=== PATIENT | female | born 1945 | race Caucasian/White ===

== ENCOUNTER → 2017-02-02 | Outpatient (CLI) | payer MEDICARE ==
[~2017-02-02] MED LIST: ALPH300C PO; AMLO10TA2 PO; ASPI81TA50 PO; ATOR80TA75 PO; CHOL20002 PO; DIPH25CA61 PO; FLUO40CA2 PO; GABA300C10 PO; LOSA1TAB12 PO; METF10002 PO; OMEP20CA9 PO; ROPI1TAB PO; prednisone; tagamet
== END | disposition home or self-care (01) ==
LOC: CFH 07:45
PROVIDERS: ATTEND Internal Medicine Cardiovascular Disease
DX: I08.3 Combined rheumatic disorders of mitral, aortic and tricuspid valves (principal); I50.30 Unspecified diastolic (congestive) heart failure
CPT/HCPCS: 93306

== ENCOUNTER → 2017-02-11 | Outpatient (CLI) | payer MEDICARE | END | disposition home or self-care (01) | LOC: CVU 12:49 | PROVIDERS: ATTEND Internal Medicine Cardiovascular Disease | DX: I73.9 Peripheral vascular disease, unspecified (principal); R60.0 Localized edema | CPT/HCPCS: 93922; 93926; 93971; 93978 ==

== ENCOUNTER → 2018-01-09 | Outpatient (CLI) | payer MEDICARE ==
[~2018-01-09] MED LIST changes: +ATOR-2 PO; -ATOR80TA75 PO
== END ==
LOC: CVU 13:41
PROVIDERS: ATTEND Internal Medicine Cardiovascular Disease
DX: I87.2 Venous insufficiency (chronic) (peripheral) (principal)
CPT/HCPCS: 93970

== ENCOUNTER 2018-10-17 16:14 | Inpatient (IN) | payer MEDICARE ==
[~2018-10-17] VITALS: Ht 157.5 cm; Wt 88.3 kg
--- NOTE | 2018-10-17 16:20 | NUR ---
ERP NOTIFIED OF PT SEVERE MUKHERJEE STARTED AFTER PT HAS SYNCOPAL EPISODE. ERP DR. MARTINO AT BEDSIDE.
--- NOTE | 2018-10-17 16:23 | NUR ---
BIB CODE 250 FOR C/O SYNCOPE EPISODE FOR 30-45 SEC WHILE DOING A TILT TABLE TEST. PT HAD C/O SEVERE MUKHERJEE AFTER SYNCOPAL EPISODE. MONITORS APPLIED. WARM BLANKET PROVIDED. CALL LIGHT IN REACH.
[2018-10-17] MEDS ORDERED: SODIUM CHLORIDE FLUSH 10ML SYR IVF ONE (16:30)
[2018-10-17 16:54] LABS: BASOPHILS # (AUTO) 0.04 x10^3/uL (0-0.1); BASOPHILS % (AUTO) 1 % (0-1); EOSINOPHILS % (AUTO) 1 % (1-7); LYMPHOCYTES # (AUTO) 2.61 x10^3/uL (1-3.4); LYMPHOCYTES % (AUTO) 35 % (22-44); MD NO; MEAN CORPUSCULAR HEMOGLOBIN 32.2 pg (27.0-34.8); MEAN CORPUSCULAR HGB CONC 34.1 g/dL (32.4-35.8); MEAN CORPUSCULAR VOLUME 94.3 fL (80-100); MEAN PLATELET VOLUME 7.3 fL (7.4-10.4); MONOCYTES # (AUTO) 0.48 x10^3/uL (0.2-0.8); MONOCYTES % (AUTO) 6 % (2-9); NEUTROPHILS # (AUTO) 4.26 x10^3/uL (1.8-6.8); NEUTROPHILS % (AUTO) 57 % (42-75); PLATELET COUNT 301 x10^3/uL (130-400); RED BLOOD COUNT 4.04 x10^6/uL (3.82-5.3); RED CELL DISTRIBUTION WIDTH 13.8 % (9.6-15.2)
[2018-10-17 17:03] LABS: ALANINE AMINOTRANSFERASE 23 U/L (12-78); ALBUMIN 3.5 g/dL (3.4-5.0); ANION GAP 4 mmol/L (5-15); CALCIUM 8.6 mg/dL (8.5-10.1); CHLORIDE 105 mmol/L (98-107); CREATININE 0.85 mg/dL (0.55-1.02)
[2018-10-17 17:07] LABS: ALKALINE PHOSPHATASE 105 U/L (45-117); BILIRUBIN,TOTAL 0.7 mg/dL (0.2-1.0); TOTAL PROTEIN 6.8 g/dL (6.4-8.2); TROPONIN I < 0.015 ng/mL (0.000-0.045)
--- NOTE | 2018-10-17 17:20 | NUR ---
PT TO CT VIA [facility].
--- NOTE | 2018-10-17 17:43 | NUR ---
PT BACK FROM CT. AWAITING RESULTS AT THIS TIME.
[2018-10-17] MEDS ORDERED: MORPHINE SULFATE 4 MG/ML, 1ML IVPush PRN (18:00)
[2018-10-17] MEDS ORDERED: SODIUM CHLORIDE FLUSH 10ML SYR IVF PRN (18:00)
[2018-10-17] MEDS ORDERED: ONDANSETRON 2MG/ML, 2ML IVPush ONE (18:00)
--- NOTE | 2018-10-17 18:23 | NUR ---
PT STATES DIZZYNESS AND NAUSEA WHEN SHE LIFTS HER HEAD. SHE IS CURRENTLY LYING FLAT THIS TIME.
--- NOTE | 2018-10-17 18:38 | NUR ---
REPORT GIVEN TO BENSON DOTSON.
--- NOTE | 2018-10-17 18:58 | NUR ---
REPORT RECEIVED FROM SHYAM KNOWLES.
[2018-10-17 19:43] VITALS: BP 144/75
[2018-10-17] MEDS ORDERED: ONDANSETRON 4 MG TABLET PO PRN (22:00)
[2018-10-17] MEDS ORDERED: ROPINIROLE 1MG TABLET PO SCH (22:00)
[2018-10-17] MEDS ORDERED: TEMAZEPAM 15 MG CAPSULE PO PRN (22:00)
[2018-10-17] MEDS ORDERED: LABETALOL 5MG/ML, 20ML IV PRN (22:00)
[2018-10-17] MEDS ORDERED: BISACODYL 10 MG SUPP PR PRN (22:00)
[2018-10-17] MEDS ORDERED: GABAPENTIN 300 MG CAPSULE PO SCH (22:00)
[2018-10-17] MEDS ORDERED: LIDODERM 5% PATCH TD PRN (22:00)
[2018-10-17] MEDS: RIVAROXABAN 10 MG TABLET PO SCH (23:08)
[2018-10-17] MEDS: ATORVASTATIN 80 MG TABLET PO SCH (23:08)
[2018-10-17] MEDS: SODIUM CHLORIDE 0.9% 1,000 ML IV SCH (23:09)
[2018-10-17] MEDS: CARVEDILOL 6.25 MG TABLET PO SCH (23:09)
[2018-10-17] MEDS ORDERED: ROPINIROLE 1MG TABLET ONE (23:23)
[2018-10-17] MEDS: ROPINIROLE 1MG TABLET PO SCH (23:25)
[2018-10-17 23:37] LABS: TROPONIN I < 0.015 ng/mL (0.000-0.045)
[2018-10-18 02:28] VITALS: BP 101/64
[2018-10-18 05:22] LABS: ALBUMIN 3.1 g/dL (3.4-5.0); ANION GAP 5 mmol/L (5-15); CALCIUM 8.3 mg/dL (8.5-10.1); CHLORIDE 107 mmol/L (98-107)
[2018-10-18 05:28] LABS: ALANINE AMINOTRANSFERASE 19 U/L (12-78); ALKALINE PHOSPHATASE 96 U/L (45-117); BILIRUBIN,TOTAL 0.6 mg/dL (0.2-1.0); CHOL/HDL RATIO 3.7; CHOLESTEROL, TOTAL 146 mg/dL (140-239); CREATININE 0.87 mg/dL (0.55-1.02); HDL CHOL % 27 % (28-40); HDL CHOLESTEROL (DIRECT) 40 mg/dL (40-60); LDL CHOLESTEROL,CALCULATED 75 mg/dL (54-169); LDL/HDL RATIO 1.9 (0.5-3.0); TOTAL PROTEIN 6.2 g/dL (6.4-8.2); TRIGLYCERIDES 155 mg/dL (50-200); TROPONIN I < 0.015 ng/mL (0.000-0.045); VLDL CHOLESTEROL 31 mg/dL (0-25)
[2018-10-18 05:29] LABS: BASOPHILS # (AUTO) 0.01 x10^3/uL (0-0.1); BASOPHILS % (AUTO) 0 % (0-1); EOSINOPHILS # (AUTO) 0.08 x10^3/uL (0-0.4); EOSINOPHILS % (AUTO) 2 % (1-7); LYMPHOCYTES # (AUTO) 1.95 x10^3/uL (1-3.4); LYMPHOCYTES % (AUTO) 35 % (22-44); MD NO; MEAN CORPUSCULAR HEMOGLOBIN 31.5 pg (27.0-34.8); MEAN CORPUSCULAR HGB CONC 33.2 g/dL (32.4-35.8); MEAN CORPUSCULAR VOLUME 94.8 fL (80-100); MEAN PLATELET VOLUME 7.5 fL (7.4-10.4); MONOCYTES # (AUTO) 0.44 x10^3/uL (0.2-0.8); MONOCYTES % (AUTO) 8 % (2-9); NEUTROPHILS # (AUTO) 3.15 x10^3/uL (1.8-6.8); NEUTROPHILS % (AUTO) 56 % (42-75); PLATELET COUNT 273 x10^3/uL (130-400); RED BLOOD COUNT 3.82 x10^6/uL (3.82-5.3); RED CELL DISTRIBUTION WIDTH 13.9 % (9.6-15.2)
[2018-10-18 07:05] VITALS: BP 119/67
[2018-10-18] MEDS: SODIUM CHLORIDE 0.9% 1,000 ML IV SCH ×2 (07:42→21:24)
[2018-10-18] MEDS: ROPINIROLE 1MG TABLET PO SCH ×3 (08:38→21:11)
[2018-10-18] MEDS: LOSARTAN 50MG TABLET PO SCH (08:39)
[2018-10-18] MEDS: OMEPRAZOLE 20 MG CAPSULE.DR PO SCH (08:39)
[2018-10-18] MEDS: ASPIRIN 81 MG TABLET CHEW PO SCH (08:39)
[2018-10-18] MEDS: HYDROCHLOROTHIAZIDE 25 MG TABLET PO SCH (08:39)
[2018-10-18] MEDS: FLUOXETINE HCL 20 MG CAPSULE PO SCH (08:39)
[2018-10-18] MEDS: CHOLECALCIFEROL 1,000 UNIT TABLET PO SCH (08:40)
[2018-10-18] MEDS: ASPIRIN 81 MG TABLET CHEW PO/NG SCH (09:00)
[2018-10-18] MEDS ORDERED: ATORVASTATIN 80 MG TABLET PO SCH (09:00)
[2018-10-18] MEDS ORDERED: AMLODIPINE 10 MG TAB PO SCH (09:00)
[2018-10-18] MEDS: TEMPLATE NON-FORMULARY MED. (Alpha Lipoic Acid** 600 MG) HOMEMEDPO SCH (09:00)
[2018-10-18] MEDS ORDERED: ROPINIROLE 1MG TABLET PO SCH (09:00)
[2018-10-18] MEDS: IBUPROFEN 200 MG TABLET PO PRN ×2 (13:18→16:43)
[2018-10-18 17:25] VITALS: BP 138/56
[2018-10-18 18:51] VITALS: BP 113/65
[2018-10-18] MEDS: RIVAROXABAN 10 MG TABLET PO SCH (21:10)
[2018-10-18] MEDS: CARVEDILOL 6.25 MG TABLET PO SCH (21:10)
[2018-10-18] MEDS: ATORVASTATIN 80 MG TABLET PO SCH (21:11)
[2018-10-19 00:19] VITALS: BP_SYST 159; BP_SYST 163; BP_SYST 173; BP_DIAS 76; BP_DIAS 81; BP_DIAS 82
[2018-10-19] MEDS: IBUPROFEN 200 MG TABLET PO PRN (02:55)
[2018-10-19 07:09] VITALS: BP 145/79
[2018-10-19 08:20] VITALS: BP_SYST 128; BP_SYST 130; BP_DIAS 71; BP_DIAS 78
[2018-10-19 08:30] VITALS: BP 118/71
[2018-10-19] MEDS: HYDROCHLOROTHIAZIDE 25 MG TABLET PO SCH (08:41)
[2018-10-19] MEDS: SODIUM CHLORIDE 0.9% 1,000 ML IV SCH (08:41)
[2018-10-19] MEDS: FLUOXETINE HCL 20 MG CAPSULE PO SCH (08:41)
[2018-10-19] MEDS: OMEPRAZOLE 20 MG CAPSULE.DR PO SCH (08:41)
[2018-10-19] MEDS: TEMPLATE NON-FORMULARY MED. (Alpha Lipoic Acid** 600 MG) HOMEMEDPO SCH (08:42)
[2018-10-19] MEDS: ASPIRIN 81 MG TABLET CHEW PO/NG SCH (08:42)
[2018-10-19] MEDS: LOSARTAN 50MG TABLET PO SCH (08:42)
[2018-10-19] MEDS: CHOLECALCIFEROL 1,000 UNIT TABLET PO SCH (08:42)
[2018-10-19] MEDS: ASPIRIN 81 MG TABLET CHEW PO SCH (08:42)
[2018-10-19] MEDS: ROPINIROLE 1MG TABLET PO SCH ×3 (08:43→20:20)
[2018-10-19] MEDS ORDERED: DEXTROSE 4 GM TAB.CHEW PO PRN (09:30)
[2018-10-19] MEDS ORDERED: DEXTROSE 50%, 50ML SYRINGE IVPush PRN (09:30)
[2018-10-19] MEDS ORDERED: GLUCAGON 1 MG IM PRN (09:30)
[2018-10-19] MEDS: INSULIN LISPRO 100 UNITS/ML, PEN SQ-INSULIN SCH ×3 (12:13→20:19)
[2018-10-19 13:04] VITALS: BP 113/70
[2018-10-19] MEDS: ACETAMINOPHEN 500 MG TABLET PO PRN ×2 (14:21→20:20)
[2018-10-19] MEDS: METHOCARBAMOL 500 MG TABLET PO PRN ×2 (14:21→23:06)
[2018-10-19 19:59] VITALS: BP 147/72
[2018-10-19] MEDS: ATORVASTATIN 80 MG TABLET PO SCH (20:20)
[2018-10-19] MEDS: RIVAROXABAN 10 MG TABLET PO SCH (20:20)
[2018-10-19] MEDS: CARVEDILOL 6.25 MG TABLET PO SCH (20:20)
[2018-10-19] MEDS: SODIUM CHLORIDE FLUSH 10ML SYR IVF SCH (21:06)
[2018-10-20] MEDS: ACETAMINOPHEN 500 MG TABLET PO PRN ×2 (01:59→10:28)
[2018-10-20 02:41] VITALS: BP 130/74
[2018-10-20] MEDS: INSULIN LISPRO 100 UNITS/ML, PEN SQ-INSULIN SCH ×4 (07:00→21:28)
[2018-10-20 08:00] VITALS: BP 151/79
[2018-10-20] MEDS: TEMPLATE NON-FORMULARY MED. (Alpha Lipoic Acid** 600 MG) HOMEMEDPO SCH (09:00)
[2018-10-20] MEDS: SODIUM CHLORIDE FLUSH 10ML SYR IVF SCH ×2 (09:00→21:00)
[2018-10-20] MEDS: FLUOXETINE HCL 20 MG CAPSULE PO SCH (10:20)
[2018-10-20] MEDS: HYDROCHLOROTHIAZIDE 25 MG TABLET PO SCH (10:21)
[2018-10-20] MEDS: METHOCARBAMOL 500 MG TABLET PO PRN (10:21)
[2018-10-20] MEDS: OMEPRAZOLE 20 MG CAPSULE.DR PO SCH (10:21)
[2018-10-20] MEDS: ASPIRIN 81 MG TABLET CHEW PO SCH (10:21)
[2018-10-20] MEDS: CHOLECALCIFEROL 1,000 UNIT TABLET PO SCH (10:21)
[2018-10-20] MEDS: LOSARTAN 50MG TABLET PO SCH (10:22)
[2018-10-20] MEDS: IBUPROFEN 200 MG TABLET PO PRN (12:39)
[2018-10-20 14:53] VITALS: BP 143/62
[2018-10-20] MEDS: GABAPENTIN 100 MG CAPSULE PO SCH ×2 (16:00→21:00)
[2018-10-20] MEDS: ACETAMINOPHEN 500 MG TABLET PO SCH ×2 (16:28→21:27)
[2018-10-20] MEDS: ROPINIROLE 1MG TABLET PO SCH ×2 (16:28→21:27)
[2018-10-20] MEDS: METHOCARBAMOL 500 MG TABLET PO SCH ×2 (16:29→21:26)
[2018-10-20] MEDS: metFORMIN 500 MG TABLET PO SCH (17:50)
[2018-10-20 19:52] VITALS: BP 145/80
[2018-10-20] MEDS: RIVAROXABAN 10 MG TABLET PO SCH (21:27)
[2018-10-20] MEDS: CARVEDILOL 6.25 MG TABLET PO SCH (21:27)
[2018-10-20] MEDS: ATORVASTATIN 80 MG TABLET PO SCH (21:27)
[2018-10-21 01:44] VITALS: BP 132/77
[2018-10-21] MEDS: ACETAMINOPHEN 500 MG TABLET PO SCH ×4 (05:58→21:09)
[2018-10-21] MEDS: METHOCARBAMOL 500 MG TABLET PO SCH ×4 (05:58→21:09)
[2018-10-21] MEDS: INSULIN LISPRO 100 UNITS/ML, PEN SQ-INSULIN SCH ×4 (07:00→21:11)
[2018-10-21 08:00] VITALS: BP 146/72
[2018-10-21] MEDS: FLUOXETINE HCL 20 MG CAPSULE PO SCH (08:36)
[2018-10-21] MEDS: CHOLECALCIFEROL 1,000 UNIT TABLET PO SCH (08:36)
[2018-10-21] MEDS: metFORMIN 500 MG TABLET PO SCH ×2 (08:37→17:06)
[2018-10-21] MEDS: LOSARTAN 50MG TABLET PO SCH (08:38)
[2018-10-21] MEDS: OMEPRAZOLE 20 MG CAPSULE.DR PO SCH (08:38)
[2018-10-21] MEDS: ASPIRIN 81 MG TABLET CHEW PO SCH (08:39)
[2018-10-21] MEDS: HYDROCHLOROTHIAZIDE 25 MG TABLET PO SCH (08:40)
[2018-10-21] MEDS: GABAPENTIN 100 MG CAPSULE PO SCH ×3 (08:44→21:00)
[2018-10-21] MEDS: SODIUM CHLORIDE FLUSH 10ML SYR IVF SCH ×2 (08:44→21:10)
[2018-10-21] MEDS: TEMPLATE NON-FORMULARY MED. (Alpha Lipoic Acid** 600 MG) HOMEMEDPO SCH (08:44)
[2018-10-21 09:59] LABS: BASOPHILS # (AUTO) 0.02 x10^3/uL (0-0.1); BASOPHILS % (AUTO) 0 % (0-1); EOSINOPHILS # (AUTO) 0.08 x10^3/uL (0-0.4); EOSINOPHILS % (AUTO) 1 % (1-7); LYMPHOCYTES # (AUTO) 1.33 x10^3/uL (1-3.4); LYMPHOCYTES % (AUTO) 20 % (22-44); MD NO; MEAN CORPUSCULAR HEMOGLOBIN 31.2 pg (27.0-34.8); MEAN CORPUSCULAR HGB CONC 33.2 g/dL (32.4-35.8); MEAN CORPUSCULAR VOLUME 94.2 fL (80-100); MEAN PLATELET VOLUME 7.1 fL (7.4-10.4); MONOCYTES # (AUTO) 0.32 x10^3/uL (0.2-0.8); MONOCYTES % (AUTO) 5 % (2-9); NEUTROPHILS # (AUTO) 4.83 x10^3/uL (1.8-6.8); NEUTROPHILS % (AUTO) 73 % (42-75); PLATELET COUNT 283 x10^3/uL (130-400); RED BLOOD COUNT 3.82 x10^6/uL (3.82-5.3); RED CELL DISTRIBUTION WIDTH 13.8 % (9.6-15.2)
[2018-10-21 10:10] LABS: ALANINE AMINOTRANSFERASE 30 U/L (12-78); ANION GAP 4 mmol/L (5-15); CALCIUM 8.3 mg/dL (8.5-10.1); CHLORIDE 103 mmol/L (98-107); CREATININE 0.99 mg/dL (0.55-1.02)
[2018-10-21 10:12] LABS: ALKALINE PHOSPHATASE 97 U/L (45-117); BILIRUBIN,TOTAL 0.4 mg/dL (0.2-1.0); TOTAL PROTEIN 6.2 g/dL (6.4-8.2)
[2018-10-21] MEDS ORDERED: MAGNESIUM SULFATE 3 GM in SODIUM CHLORIDE 0.9% 100 ML IV ONE (11:00)
[2018-10-21 11:30] VITALS: BP_SYST 127; BP_SYST 131; BP_SYST 133; BP_DIAS 64; BP_DIAS 67; BP_DIAS 73
[2018-10-21 13:17] VITALS: BP 116/70
[2018-10-21] MEDS ORDERED: ROPINIROLE 1MG TABLET PO SCH (16:00)
[2018-10-21 17:14] VITALS: BP 158/79
[2018-10-21 19:21] VITALS: BP 145/78
[2018-10-21] MEDS: ROPINIROLE 1MG TABLET PO SCH (21:09)
[2018-10-21] MEDS: ATORVASTATIN 80 MG TABLET PO SCH (21:10)
[2018-10-21] MEDS: CARVEDILOL 6.25 MG TABLET PO SCH (21:10)
[2018-10-21] MEDS: RIVAROXABAN 10 MG TABLET PO SCH (21:10)
[2018-10-22 00:08] VITALS: BP 129/68
[2018-10-22 04:15] LABS: BASOPHILS % (AUTO) 0 % (0-1); EOSINOPHILS % (AUTO) 0 % (1-7); LYMPHOCYTES # (AUTO) 1.19 x10^3/uL (1-3.4); LYMPHOCYTES % (AUTO) 13 % (22-44); MD NO; MEAN CORPUSCULAR HEMOGLOBIN 32.2 pg (27.0-34.8); MEAN CORPUSCULAR VOLUME 94.6 fL (80-100); MEAN PLATELET VOLUME 7.5 fL (7.4-10.4); MONOCYTES # (AUTO) 0.13 x10^3/uL (0.2-0.8); MONOCYTES % (AUTO) 2 % (2-9); NEUTROPHILS # (AUTO) 7.73 x10^3/uL (1.8-6.8); NEUTROPHILS % (AUTO) 85 % (42-75); PLATELET COUNT 309 x10^3/uL (130-400); RED BLOOD COUNT 3.98 x10^6/uL (3.82-5.3); RED CELL DISTRIBUTION WIDTH 13.3 % (9.6-15.2)
[2018-10-22 04:20] LABS: ALBUMIN 3.4 g/dL (3.4-5.0); ANION GAP 6 mmol/L (5-15); CALCIUM 8.5 mg/dL (8.5-10.1); CHLORIDE 101 mmol/L (98-107)
[2018-10-22 04:25] LABS: ALANINE AMINOTRANSFERASE 31 U/L (12-78); ALKALINE PHOSPHATASE 93 U/L (45-117); BILIRUBIN,TOTAL 0.5 mg/dL (0.2-1.0); CREATININE 0.95 mg/dL (0.55-1.02); TOTAL PROTEIN 6.9 g/dL (6.4-8.2)
[2018-10-22] MEDS: ACETAMINOPHEN 500 MG TABLET PO SCH ×2 (05:18→11:00)
[2018-10-22] MEDS: METHOCARBAMOL 500 MG TABLET PO SCH ×2 (05:18→11:00)
[2018-10-22] MEDS: INSULIN LISPRO 100 UNITS/ML, PEN SQ-INSULIN SCH ×2 (07:51→12:21)
[2018-10-22] MEDS: TEMPLATE NON-FORMULARY MED. (Alpha Lipoic Acid** 600 MG) HOMEMEDPO SCH (09:00)
[2018-10-22] MEDS: FLUOXETINE HCL 20 MG CAPSULE PO SCH (09:19)
[2018-10-22] MEDS: CHOLECALCIFEROL 1,000 UNIT TABLET PO SCH (09:19)
[2018-10-22] MEDS: GABAPENTIN 100 MG CAPSULE PO SCH (09:20)
[2018-10-22] MEDS: HYDROCHLOROTHIAZIDE 25 MG TABLET PO SCH (09:20)
[2018-10-22] MEDS: LOSARTAN 50MG TABLET PO SCH (09:20)
[2018-10-22] MEDS: ASPIRIN 81 MG TABLET CHEW PO SCH (09:20)
[2018-10-22] MEDS: OMEPRAZOLE 20 MG CAPSULE.DR PO SCH (09:21)
[2018-10-22] MEDS: SODIUM CHLORIDE FLUSH 10ML SYR IVF SCH (09:21)
[2018-10-22] MEDS: metFORMIN 500 MG TABLET PO SCH (09:21)
[2018-10-22 09:55] VITALS: BP 103/68
[2018-10-22] MEDS ORDERED: CARV6.2512 PO (11:47)
== END 2018-10-22 13:47 | disposition home health service (06) | DRG 73 ==
LOC: ED 17:59 → EDIP 18:00 → ED 18:08 → 4WST 19:01
PROVIDERS: ADMIT Internal Medicine; ATTEND Internal Medicine
DX: G90.8 Other disorders of autonomic nervous system (principal); J96.21 Acute and chronic respiratory failure with hypoxia; E66.2 Morbid (severe) obesity with alveolar hypoventilation; R47.01 Aphasia; E11.43 Type 2 diabetes mellitus with diabetic autonomic (poly)neuropathy; E11.51 Type 2 diabetes mellitus with diabetic peripheral angiopathy without gangrene; E11.69 Type 2 diabetes mellitus with other specified complication; E78.5 Hyperlipidemia, unspecified; I10 Essential (primary) hypertension; M54.81 Occipital neuralgia; Z80.3 Family history of malignant neoplasm of breast; Z80.7 Family history of other malignant neoplasms of lymphoid, hematopoietic and related tissues; Z82.49 Family history of ischemic heart disease and other diseases of the circulatory system; Z83.3 Family history of diabetes mellitus; Z86.718 Personal history of other venous thrombosis and embolism; Z87.891 Personal history of nicotine dependence; Z99.81 Dependence on supplemental oxygen; Z88.5 Allergy status to narcotic agent; Z88.8 Allergy status to other drugs, medicaments and biological substances; Z68.35 Body mass index [BMI] 35.0-35.9, adult
CPT/HCPCS: 36415; 70450; 70551; 71045; 80053; 80061; 82962; 83036; 83735; 84100; 84484; 85025; 93005; 93306; 99285; G0378; J3475; Q0162; J1815; J7030; J7512

== ENCOUNTER → 2018-10-17 | Outpatient (CLI) | payer MEDICARE ==
[~2018-10-17] MED LIST changes: -AMLO10TA2 PO; +AMLO10TA8 PO; -CHOL20002 PO; +CHOL200052 PO
== END | disposition home or self-care (01) ==
LOC: CVU 12:17
PROVIDERS: ATTEND Internal Medicine Cardiovascular Disease
DX: I70.291 Other atherosclerosis of native arteries of extremities, right leg (principal); I65.23 Occlusion and stenosis of bilateral carotid arteries; I87.2 Venous insufficiency (chronic) (peripheral); R42 Dizziness and giddiness; R60.0 Localized edema; E78.5 Hyperlipidemia, unspecified; I10 Essential (primary) hypertension; E11.9 Type 2 diabetes mellitus without complications; Z86.73 Personal history of transient ischemic attack (TIA), and cerebral infarction without residual deficits; Z87.891 Personal history of nicotine dependence
CPT/HCPCS: 93880; 93922; 93926; 93970

== ENCOUNTER 2021-05-08 09:38 | Inpatient (IN) | payer MEDICARE ==
[~2021-05-08] VITALS: Ht 157.5 cm; Wt 86.6 kg
[~2021-05-08 09:38] MED LIST changes: +ALBU2.5V INH; +ALPR0.5T7 PO; +AMLO-211 PO; -AMLO10TA8 PO; +ATOR40TA78 PO; +CARV6.2512 PO; +FLUO20TA25 PO; +synjardy PO; +xarelto
[2021-05-08] MEDS ORDERED: ASPIRIN 81 MG TABLET CHEW PO ONE (10:00)
[2021-05-08] MEDS ORDERED: ASPIRIN 81 MG TABLET CHEW ONE (10:10)
--- NOTE | 2021-05-08 10:21 | NUR ---
Labs drawn, PIV infiltrated x1. On monitor, asa given, vss.
[2021-05-08 10:26] LABS: BASOPHILS % (AUTO) 1 % (0-1); EOSINOPHILS % (AUTO) 1 % (1-7); LYMPHOCYTES % (AUTO) 28 % (22-44); MEAN CORPUSCULAR HEMOGLOBIN 32.3 pg (27.0-34.8); MEAN CORPUSCULAR HGB CONC 34.5 g/dL (32.4-35.8); MEAN PLATELET VOLUME 7.5 fL (7.4-10.4); MONOCYTES % (AUTO) 6 % (2-9); NEUTROPHILS % (AUTO) 64 % (42-75); PLATELET COUNT 263 x10^3/uL (130-400); RED BLOOD COUNT 4.11 x10^6/uL (3.82-5.3)
[2021-05-08] MEDS ORDERED: SODIUM CHLORIDE 0.9% 1,000ML IVBOLUS ONE (10:30)
[2021-05-08] MEDS ORDERED: ONDANSETRON 2MG/ML, 2ML IVPush ONE (10:30)
[2021-05-08] MEDS ORDERED: SODIUM CHLORIDE FLUSH 10ML SYR IVF ONE (10:30)
[2021-05-08 10:39] LABS: ALANINE AMINOTRANSFERASE 25 U/L (12-78); ALBUMIN 3.4 g/dL (3.4-5.0); ANION GAP 10 mmol/L (5-15); CALCIUM 8.7 mg/dL (8.5-10.1); CHLORIDE 104 mmol/L (98-107)
[2021-05-08 10:43] LABS: ALKALINE PHOSPHATASE 103 U/L (45-117); BILIRUBIN,TOTAL 0.5 mg/dL (0.2-1.0); CREATININE 1.02 mg/dL (0.55-1.02); TROPONIN I < 0.015 ng/mL (0.000-0.045)
[2021-05-08] MEDS ORDERED: ONDANSETRON 2MG/ML, 2ML ONE (11:06)
[2021-05-08] MEDS ORDERED: MORPHINE SULFATE 4 MG/ML, 1ML ONE ×2 (11:07→19:07)
[2021-05-08] MEDS: MORPHINE SULFATE 4 MG/ML, 1ML IVPush PRN ×2 (11:16→19:12)
--- NOTE | 2021-05-08 11:33 | NUR ---
PT AMBULATED W/ A STEADY GAIT TO BR. RETURNED TO ROOM W/O INCIDENT. RESP EVEN AND UNLABORED, MAGALY.
--- NOTE | 2021-05-08 16:08 | NUR ---
PT RESTING IN BED, PT A/O X4 WITH EQUAL AND UNLABORED BREATHS.. PT AWARE OF ED CARE PLAN. PT DENIED ANY CURRENT WANTS OR NEEDS.
[2021-05-08] MEDS ORDERED: PROMETHAZINE 25 MG/ML, 1ML IM PRN (17:00)
[2021-05-08] MEDS ORDERED: ALBUTEROL SULFATE 2.5 MG/3 ML NEB PRN (17:00)
[2021-05-08] MEDS ORDERED: POLYETHYLENE GLYCOL 17 GM PACKET PO PRN (17:00)
[2021-05-08] MEDS: SODIUM CHLORIDE 0.9% 1,000 ML IV SCH (17:00)
[2021-05-08] MEDS ORDERED: morphine SULFATE 10 MG/ML, 1ML IVPush PRN (17:00)
[2021-05-08] MEDS ORDERED: ONDANSETRON 2MG/ML, 2ML IVPush PRN (17:00)
[2021-05-08] MEDS ORDERED: ONDANSETRON ODT 4 MG PO PRN (17:00)
[2021-05-08] MEDS ORDERED: OXYcodone IR 5MG TABLET PO PRN (17:00)
[2021-05-08] MEDS ORDERED: NITROGLYCERIN 0.4 MG BOTTLE (25 TABS) SL PRN (17:00)
[2021-05-08] MEDS ORDERED: hydrALAzine 20 MG/ML, 1ML IVPush PRN (17:00)
[2021-05-08] MEDS: ROPINIROLE 1MG TABLET PO SCH ×2 (17:00→22:07)
[2021-05-08] MEDS ORDERED: BISACODYL 10 MG SUPP PR PRN (17:00)
[2021-05-08] MEDS ORDERED: DOCUSATE 100 MG CAPSULE PO PRN (17:00)
[2021-05-08] MEDS ORDERED: ACETAMINOPHEN 325 MG TABLET PO PRN (17:00)
[2021-05-08] MEDS ORDERED: methylPREDNISolone SOD SUCC 125 MG/2 ML IVPush SCH ×2 (19:00→19:58)
[2021-05-08] MEDS ORDERED: FAMOTIDINE 20 MG/2 ML IVPush ONE (19:00)
[2021-05-08] MEDS ORDERED: DIPHENHYDRAMINE 50 MG/ML, 1ML IVPush ONE (19:00)
[2021-05-08] MEDS ORDERED: FAMOTIDINE 20 MG/2 ML ONE (19:07)
[2021-05-08] MEDS ORDERED: HEPARIN 5,000 UNITS/ML, 1ML ONE (19:07)
[2021-05-08] MEDS ORDERED: DIPHENHYDRAMINE 50 MG/ML, 1ML ONE (19:07)
[2021-05-08] MEDS: HEPARIN 5,000 UNITS/ML, 1ML SQ SCH (19:13)
--- NOTE | 2021-05-08 19:29 | NUR ---
PT RESTING IN BED, PT A/O X4 WITH EQUAL AND UNLABORED BREATHS.. PT AWARE OF ED CARE PLAN. PT DENIED ANY CURRENT WANTS OR NEEDS.
[2021-05-08] MEDS ORDERED: OMNIPAQUE 350 MG/ML, 75ML BOTTLE ONE (20:01)
[2021-05-08 20:05] VITALS: BP 105/54
[2021-05-08 21:28] LABS: TROPONIN I < 0.015 ng/mL (0.000-0.045)
[2021-05-08] MEDS: ASPIRIN 81 MG TABLET EC PO SCH (22:06)
[2021-05-08] MEDS: ATORVASTATIN 40 MG TABLET PO SCH (22:07)
[2021-05-08 23:56] LABS: TROPONIN I < 0.015 ng/mL (0.000-0.045)
[2021-05-09 01:16] VITALS: BP 90/59
[2021-05-09 06:15] LABS: CHLORIDE 109 mmol/L (98-107)
[2021-05-09 06:20] LABS: BASOPHILS % (AUTO) 1 % (0-1); EOSINOPHILS % (AUTO) 2 % (1-7); LYMPHOCYTES % (AUTO) 43 % (22-44); MEAN CORPUSCULAR HEMOGLOBIN 31.9 pg (27.0-34.8); MEAN CORPUSCULAR HGB CONC 33.5 g/dL (32.4-35.8); MEAN PLATELET VOLUME 7.5 fL (7.4-10.4); MONOCYTES % (AUTO) 8 % (2-9); NEUTROPHILS % (AUTO) 45 % (42-75); PLATELET COUNT 237 x10^3/uL (130-400); RED CELL DISTRIBUTION WIDTH 14.3 % (9.6-15.2)
[2021-05-09 06:27] LABS: ALANINE AMINOTRANSFERASE 23 U/L (12-78); ALBUMIN 2.7 g/dL (3.4-5.0); ALKALINE PHOSPHATASE 89 U/L (45-117); ANION GAP 5 mmol/L (5-15); BILIRUBIN,TOTAL 0.5 mg/dL (0.2-1.0); CALCIUM 8.1 mg/dL (8.5-10.1); CHOL/HDL RATIO 3.1; CHOLESTEROL, TOTAL 119 mg/dL (140-239); CREATININE 0.88 mg/dL (0.55-1.02); HDL CHOL % 32 % (28-40); HDL CHOLESTEROL (DIRECT) 38 mg/dL (40-60); LDL CHOLESTEROL,CALCULATED 30 mg/dL (54-169); LDL/HDL RATIO 0.8 (0.5-3.0); TOTAL PROTEIN 5.7 g/dL (6.4-8.2); TRIGLYCERIDES 255 mg/dL (50-200); VLDL CHOLESTEROL 51 mg/dL (0-25)
[2021-05-09] MEDS: HEPARIN 5,000 UNITS/ML, 1ML SQ SCH ×3 (06:28→21:11)
[2021-05-09 07:20] VITALS: BP 137/76
[2021-05-09] MEDS ORDERED: REGADENOSON 0.4 MG/5 ML SYRINGE ONE (08:15)
[2021-05-09] MEDS: SODIUM CHLORIDE 0.9% 1,000 ML IV SCH (08:54)
[2021-05-09] MEDS: ROPINIROLE 1MG TABLET PO SCH ×3 (08:54→21:12)
[2021-05-09 12:49] VITALS: BP 104/62
[2021-05-09 13:35] LABS: MICROSCOPIC NOT IND
[2021-05-09] MEDS: INSULIN LISPRO 100 UNITS/ML, PEN SQ-INSULIN SCH ×2 (17:30→21:12)
[2021-05-09] MEDS: ASPIRIN 81 MG TABLET EC PO SCH (21:12)
[2021-05-09] MEDS: ATORVASTATIN 40 MG TABLET PO SCH (21:13)
[2021-05-09 21:28] VITALS: BP 104/69
[2021-05-10 02:30] VITALS: BP 110/64
[2021-05-10] MEDS: HEPARIN 5,000 UNITS/ML, 1ML SQ SCH ×2 (06:13→15:00)
[2021-05-10 07:29] VITALS: BP 116/67
[2021-05-10] MEDS: ROPINIROLE 1MG TABLET PO SCH (08:44)
[2021-05-10] MEDS: INSULIN LISPRO 100 UNITS/ML, PEN SQ-INSULIN SCH ×2 (08:44→12:09)
[2021-05-10] MEDS ORDERED: FLUOXETINE HCL 20 MG CAPSULE PO SCH (09:00)
[2021-05-10] MEDS ORDERED: METF500T17 PO (11:31)
[2021-05-10] MEDS ORDERED: PANT40TA3 PO (11:31)
[2021-05-10] MEDS ORDERED: ASPI81TA45 PO (11:31)
[2021-05-10] MEDS ORDERED: LOSA50TA2 PO (11:31)
[2021-05-10 12:44] VITALS: BP 124/75
== END 2021-05-10 17:38 | disposition home or self-care (01) | DRG 303 ==
LOC: ED 10:53 → EDIP 16:02 → 5SO 19:53
PROVIDERS: ADMIT Internal Medicine; ATTEND Internal Medicine
DX: I25.10 Atherosclerotic heart disease of native coronary artery without angina pectoris (principal); E66.2 Morbid (severe) obesity with alveolar hypoventilation; J96.10 Chronic respiratory failure, unspecified whether with hypoxia or hypercapnia; E78.5 Hyperlipidemia, unspecified; Z20.822 Contact with and (suspected) exposure to COVID-19; I10 Essential (primary) hypertension; Z79.84 Long term (current) use of oral hypoglycemic drugs; Z80.3 Family history of malignant neoplasm of breast; Z80.7 Family history of other malignant neoplasms of lymphoid, hematopoietic and related tissues; Z82.49 Family history of ischemic heart disease and other diseases of the circulatory system; Z83.3 Family history of diabetes mellitus; Z86.718 Personal history of other venous thrombosis and embolism; Z86.73 Personal history of transient ischemic attack (TIA), and cerebral infarction without residual deficits; Z87.891 Personal history of nicotine dependence; M19.90 Unspecified osteoarthritis, unspecified site; I70.8 Atherosclerosis of other arteries; I95.9 Hypotension, unspecified; Z90.710 Acquired absence of both cervix and uterus; Z68.34 Body mass index [BMI] 34.0-34.9, adult; E11.9 Type 2 diabetes mellitus without complications; I34.0 Nonrheumatic mitral (valve) insufficiency; J44.9 Chronic obstructive pulmonary disease, unspecified; K21.9 Gastro-esophageal reflux disease without esophagitis
CPT/HCPCS: 36415; 71045; 71275; 78452; 80053; 80061; 81003; 82962; 83036; 83690; 83735; 84100; 84443; 84484; 85025; 93005; 93017; 93306; 96374; 96375; 99285; G0378; J1644; J2405; J2785; Q9967; U0005; A9502; J1200; J1815; J2270; J7030; U0003